=== PATIENT | male | born 1970 | race African-American/Black ===

== ENCOUNTER 2022-07-03 15:59 | Emergency (ER) | payer OTHER, BC ==
[~2022-07-03] VITALS: Ht 180.3 cm; Wt 136.4 kg
[2022-07-03 16:02] VITALS: TEMP 98.7
[2022-07-03] MEDS ORDERED: CEPHALEXIN500 M1 PO (16:31)
[2022-07-03 17:31] VITALS: BP 148/78; PULSE 110
== END 2022-07-03 17:32 | disposition home or self-care (01) ==
LOC: COL.ER 15:59
DX: L03.116 Cellulitis of left lower limb (principal); E11.9 Type 2 diabetes mellitus without complications; B35.1 Tinea unguium